=== PATIENT | female | born 1955 | race Caucasian/White ===

== ENCOUNTER 2020-02-19 23:05 | Emergency (ER) | payer OTHER ==
--- NOTE | 2020-02-20 00:32 | EDPHYS ---
Physician Documentation [facility] Name: Vale Milan Age: 64 yrs Sex: Female : 1955 Arrival Date: 02/19/2020 Time: 23:07 Bed 4 Private MD: ED Physician Eliazar Cabral HPI: 02/19 01:55 This 64 yrs old Female presents to ER via EMS with complaints of Leg Pain - tw4 Right. 01:55 The patient presents with decreased range of motion, a deformity. The complaints affect tw4 the right quadriceps, right knee and right miramontes. Context: The problem was sustained at home. Onset: The symptoms/episode began/occurred today. Modifying factors: The symptoms are alleviated by nothing. the symptoms are aggravated by nothing. Severity of symptoms: At their worst the symptoms were moderate, in the emergency department the symptoms are unchanged. The patient has not experienced similar symptoms in the past. Historical: - Allergies: 02/18 23:10 No Known Allergies; sg - PMHx: 23:10 COPD; sg - PSHx: 23:10 Finger tip; sg - Immunization history:: Adult Immunizations not up to date. - Social history:: Smoking status: Patient denies any tobacco usage or history of. ROS: 02/19 01:55 Constitutional: Negative for fever, chills, and weight loss, Eyes: Negative for injury, tw4 pain, redness, and discharge, Cardiovascular: Negative for chest pain, palpitations, and edema, Respiratory: Negative for shortness of breath, cough, wheezing, and pleuritic chest pain, Abdomen/GI: Negative for abdominal pain, nausea, vomiting, diarrhea, and constipation, Back: Negative for injury and pain, Skin: Negative for injury, rash, and discoloration, Neuro: Negative for headache, weakness, numbness, tingling, and seizure. MS/extremity: Positive for swelling, tenderness. Exam: 01:55 Constitutional: This is a well developed, well nourished patient who is awake, alert, tw4 and in no acute distress. Head/Face: Normocephalic, atraumatic. Chest/axilla: Normal chest wall appearance and motion. Nontender with no deformity. No lesions are appreciated. Cardiovascular: Regular rate and rhythm with a normal S1 and S2. No gallops, murmurs, or rubs. Normal PMI, no JVD. No pulse deficits. Respiratory: Lungs have equal breath sounds bilaterally, clear to auscultation and percussion. No rales, rhonchi or wheezes noted. No increased work of breathing, no retractions or nasal flaring. Abdomen/GI: Soft, non-tender, with normal bowel sounds. No distension or tympany. No guarding or rebound. No evidence of tenderness throughout. Back: No spinal tenderness. No costovertebral tenderness. Full range of motion. Neuro: Awake and alert, GCS 15, oriented to person, place, time, and situation. Cranial nerves II-XII grossly intact. Motor strength 5/5 in all extremities. Sensory grossly intact. Cerebellar exam normal. Normal gait. 01:55 Musculoskeletal/extremity: Extremities: noted in the right leg: swelling, tenderness, ROM: Circulation is intact in all extremities. Vital Signs: 02/18 23:07 BP 178 / 82; Pulse 87; Resp 17; Temp 97.7; Pulse Ox 100% on R/A; sg 02/19 00:30 BP 161 / 86; Pulse 79; Resp 18; Pulse Ox 98% on R/A; MDM: 02/18 23:08 Patient medically screened. tw4 02/19 01:55 Differential diagnosis: dislocation, open fracture, closed fracture. Data reviewed: tw4 vital signs, nurses notes. Data reviewed: radiologic studies, ultrasound. Data interpreted: Pulse oximetry: Interpretation: normal. Counseling: I had a detailed discussion with the patient and/or guardian regarding: the historical points, exam findings, and any diagnostic results supporting the discharge/admit diagnosis. Special discussion: Based on the patient's history, exam and DX evaluation, there is no indication for emergent intervention or inpatient TX. It is understood by the patient/guardian that if the SXs persist or worsen they need to return immediately for re-evaluation. 02/18 23:10 Order name: Extremity Venous Uni Ltd tw4 Administered Medications: 00:44 Drug: [place] 5 mg-325 mg 1 tabs Route: PO; 01:04 Follow up: Response: No adverse reaction; Pain is decreased; RASS: Alert and Calm (0) Disposition: 02/20/20 00:32 Discharged to Home. Impression: Lower extremuty edema. - Condition is Stable. - Discharge Instructions: Edema, Peripheral Edema. - Medication Reconciliation Form, Thank You Letter, Antibiotic Education, Prescription Opioid Use form. - Follow up: Private Physician; When: Upon discharge from the Emergency Department; Reason: Recheck today's complaints, Continuance of care, Re-evaluation by your physician. - Problem is new. - Symptoms are unchanged. Signatures: Dispatcher [employer] EDCrow Zaman RN RN Farrukh Markham Terrence, MD MD tw4 Eusebia Clark mw2 Corrections: (The following items were deleted from the chart) 00:57 00:32 02/20/2020 00:32 Discharged to Home. Impression: Lower extremuty edema. Condition mw2 is Stable. Forms are Medication Reconciliation Form, Thank You Letter, Antibiotic Education, Prescription Opioid Use. Follow up: Private Physician; When: Upon discharge from the Emergency Department; Reason: Recheck today's complaints, Continuance of care, Re-evaluation by your physician. Problem is new. Symptoms are unchanged. tw4
--- NOTE | 2020-02-20 00:32 | ER ---
Nurse's Notes [facility] Name: Vale Milan Age: 64 yrs Sex: Female : 1955 Arrival Date: 02/19/2020 Time: 23:07 Bed 4 Private MD: Diagnosis: Lower extremuty edema Presentation: 02/18 23:07 Chief complaint: EMS states: pt reports having pain and swelling to the right lower sg extremity with redness, pt states having swelling at home yesterday and the day before, but this evening the swelling has gone down, but the pain remains. Coronavirus screen: Client denies travel out of the [place] in the last 14 days. At this time, the client does not indicate any symptoms associated with coronavirus-19. Ebola Screen: Patient negative for fever greater than or equal to 101.5 degrees Fahrenheit, and additional compatible Ebola Virus Disease symptoms Patient denies exposure to infectious person. Patient denies travel to an Ebola-affected area in the 21 days before illness onset. No symptoms or risks identified at this time. Initial Sepsis Screen: Does the patient meet any 2 criteria? No. Patient's initial sepsis screen is negative. Does the patient have a suspected source of infection? No. Patient's initial sepsis screen is negative. Risk Assessment: Do you want to hurt yourself or someone else? Patient reports no desire to harm self or others. Onset of symptoms was February 19, 2020. Care prior to arrival: None. Mechanism of Injury: No Mechanism of Injury. Transition of care: patient was not received from another setting of care. 23:07 Acuity: AUGUSTIN 3 sg 23:07 [facility] Assessment: 23:30 General: Appears in no apparent distress. Behavior is calm, cooperative, appropriate wh for age. Historical: - Allergies: 23:10 No Known Allergies; sg - PMHx: 23:10 COPD; sg - PSHx: 23:10 Finger tip; sg - Immunization history:: Adult Immunizations not up to date. - Social history:: Smoking status: Patient denies any tobacco usage or history of. Screenin:30 Abuse screen: Denies threats or abuse. Denies injuries from another. Nutritional wh screening: No deficits noted. Tuberculosis screening: No symptoms or risk factors identified. Fall Risk None identified. Assessment: 23:30 General: Appears in no apparent distress. Behavior is calm, cooperative, appropriate wh for age. Pain: Complains of pain in right leg Pain currently is 5 out of 10 on a pain scale. Neuro: Level of Consciousness is awake, alert, obeys commands, Oriented to person, place, time, situation, Appropriate for age. Cardiovascular: Capillary refill < 3 seconds. Respiratory: Airway is patent Respiratory effort is even, unlabored, Respiratory pattern is regular, symmetrical. GI: Abdomen is flat, non-distended. : No signs and/or symptoms were reported regarding the genitourinary system. EENT: No signs and/or symptoms were reported regarding the EENT system. Derm: Skin is intact, is healthy with good turgor, Skin is pink, warm \T\ dry. Musculoskeletal: Circulation, motion, and sensation intact. 02/19 00:10 Reassessment: Ultrasound at bedside. 00:30 Reassessment: Patient appears in no apparent distress at this time. No changes from previously documented assessment. Patient and/or family updated on plan of care and expected duration. Pain level reassessed. Patient is alert, oriented x 3, equal unlabored respirations, skin warm/dry/pink. Vital Signs: 02/18 23:07 BP 178 / 82; Pulse 87; Resp 17; Temp 97.7; Pulse Ox 100% on R/A; sg 12 00:30 BP 161 / 86; Pulse 79; Resp 18; Pulse Ox 98% on R/A; ED Course: 02/18 23:07 Patient arrived in ED. sg 23:07 Arm band placed on. sg 23:08 Eliazar Cabral MD is Attending Physician. tw4 23:09 Triage completed. sg 23:10 Warm blanket given. Verbal reassurance given. sg 23:13 Farrukh Rogers is Primary Nurse. 23:30 Patient has correct armband on for positive identification. Bed in low position. Call light in reach. Side rails up X 1. Pulse ox on. NIBP on. 02/19 00:16 Ultrasound completed. Patient tolerated well. Notified ED Physician nena. sg3 00:16 Extremity Venous Uni Ltd US In Process Unspecified. EDMS 00:57 No provider procedures requiring assistance completed. Patient did not have IV access during this emergency room visit. Administered Medications: 00:44 Drug: Alpha 5 mg-325 mg 1 tabs Route: PO; 01:04 Follow up: Response: No adverse reaction; Pain is decreased; RASS: Alert and Calm (0) Outcome: 00:32 Discharge ordered by . tw4 00:57 Patient left the ED. mw2 00:57 Discharged to home ambulatory. 00:57 Condition: stable 00:57 Discharge instructions given to patient, Instructed on discharge instructions, follow up and referral plans. POC Demonstrated understanding of instructions, follow-up care, POC Addendum: 02/22/2020 10:12 Addendum: Other id card and insurance card sent to lost and found by security. b d Signatures: Dispatcher [employer] EDBronwyn Bruno Steven, Farrukh Mccrary RN, Sarah 3 Eliazar Cabral MD MD tw4 Eusebia Clark mw2
[2020-02-20] MEDS ORDERED: HYDROCODONE/APAP 5/325 MG TAB ONE (00:55)
--- NOTE | 2020-02-20 11:52 | RAD REPORT ---
EXAM DESCRIPTION: US - Extremity Venous Uni Ltd - 02/20/2020 12:15 am CLINICAL HISTORY: SWELLING Leg swelling and edema. COMPARISON: No comparisons FINDINGS: Right lower extremity venous system was interrogated with Doppler technique. Normal flow, compressibility and augmentation was noted. There is no DVT present. IMPRESSION: No evidence of right lower extremity deep venous thrombosis.
[2020-02-24 06:40] VITALS: BP 178/82; TEMP 97.7; O2SAT 100
== END 2020-02-20 00:57 | disposition home or self-care (01) ==
LOC: ER 23:05
DX: R60.0 Localized edema (principal); J44.9 Chronic obstructive pulmonary disease, unspecified
CPT/HCPCS: 93971; 99284

== ENCOUNTER 2020-07-03 07:24 | Day surgery (SDC) | payer OTHER ==
[2020-06-29 14:10] LABS: Absolute Lymphocytes (CBC) 0.4 K/uL (0.7-4.9); Basophils % 1.1 % (0-1.3); Hematocrit 35.3 % (36.0-45.0); Lymphocytes % 15.2 % (15.3-44.8); MPV 8.2 fL (7.6-11.3); RBC Red Blood Cell Count 3.83 M/uL (3.86-4.86)
[2020-06-29 14:47] LABS: BUN Blood Urea Nitrogen 3 mg/dL (7-18); Bicarbonate 31 mmol/L (21-32); Glucose Level 55 mg/dL (74-106); Potassium 3.4 mmol/L (3.5-5.1); Sodium Level 138 mmol/L (136-145)
[2020-07-03] MEDS ORDERED: Ringers Lactate 1,000 ML IV ONE (08:02)
[2020-07-03] MEDS ORDERED: ALBUTEROL 2.5 MG/3 ML NEB SOL ONE (08:02)
[2020-07-03] MEDS ORDERED: CEFAZOLIN/SWI 1gm 1 GM/10 ML SYR ONE (08:02)
[2020-07-03] MEDS ORDERED: propofoL 200 MG/20 ML VIAL IV ONE (08:30)
[2020-07-03] MEDS ORDERED: dexAMETHasone 10 MG/ML VIAL ONE (08:31)
[2020-07-03] MEDS ORDERED: MIDAZOLAM HCL 2 MG/2 ML INJ ONE (08:31)
[2020-07-03] MEDS ORDERED: ONDANSETRON 4 MG/2 ML VIAL ONE (08:31)
[2020-07-03] MEDS ORDERED: KETOROLAC 30 MG/ML INJ ONE (08:31)
[2020-07-03] MEDS ORDERED: LIDOCAINE 2% MPF 5 ML VIAL ONE (08:31)
[2020-07-03] MEDS ORDERED: FENTANYL CITR 100 MCG/2 ML ONE ×2 (08:31→09:48)
[2020-07-03] MEDS ORDERED: BUPIVACAINE 0.25% PF 30 ML VIAL ONE (08:32)
--- NOTE | 2020-07-03 10:16 | P.OP ---
Preoperative diagnosis: Lymphadenopathy Postoperative diagnosis: Lymphadenopathy Primary procedure: Open RIGHT Inguinal Lymph Node Biopsy Anesthesia: GETA + Local Estimated blood loss: < 50cc Specimen: RIGHT Inguinal Lymph Node Findings: Matted Fixed, Lymph Nodes, Dilated branches of inf epigastric vein Complications: None Drain(s): Other (Telfa) Transferred to: Recovery Room Condition: Good
[2020-07-03] MEDS: LABETALOL 20 MG/4ML SYRINGE IV ONE ×2 (10:44→10:55)
[2020-07-03 14:04] VITALS: BP 148/70; TEMP 98.4; O2SAT 96
--- NOTE | 2020-07-03 14:21 | OP ---
Date of Procedure: 07/03/2020 Surgeon: Maddy Meléndez MD, Preoperative Diagnosis: Lymphadenopathy. Postoperative Diagnosis: Lymphadenopathy. Procedure Performed: Open right inguinal lymph node biopsy. Anesthesia: General endotracheal plus local with 0.25% Marcaine. Specimen: Right inguinal lymph node. Findings: 1.Matted fixed lymph nodes in the right inguinal lymph node chain. 2.Dilated branches of the inferior epigastric vein entwined and running along the course of the lymp h node chain. Complications: None. Estimated Blood Loss: Less than 50 mL. Drains: Telfa. Disposition: Transferred to recovery room in good condition. Procedure In Detail: After informed consent was obtained, the patient was brought to the operating r oom, prepped and draped in the usual sterile fashion after adequate anesthesia was achieved. I palpa maddy large lymph nodes in the right inguinal region. I performed an incision superior to the inguinal crease down through the subcutaneous tissues overlying a large dominant lymph node. I dissected randy n using electrocautery down to subcutaneous tissues. I opened the external oblique aponeurosis tissu e to access the lymph node chain, which was easily palpable. I circumferentially dissected the domin ant lymph node, which was fixed and matted to the entire lymph node chain and required meticulous dis section. As I dissected circumferentially around, I placed clips on all lymphatic channels to contro l postoperative lymph leak. The branches of the inferior epigastric vein were dilated and partially obstructing the view towards the lymph node chain and dissection was performed. However, branches of the inferior epigastric vein were injured and were suture ligated using 3-0 Prolene suture at this p oint. The dissection continued circumferentially to dissect the lymph node. All arterial branches w ere either clipped with small Endo clips and ligated with Metzenbaums or were controlled with the yovany jayant narayanan 3-0 Prolene suture with good hemostasis. The lymph node was removed and sent off for patholog ic examination. The wound bed was copiously irrigated and packed with Surgicel temporarily until goo d hemostasis was achieved. The Surgicel was removed at this point. The area was irrigated once agai n. No additional hemostatic maneuvers were required. Clips were found to be in good position. I th en proceeded to close the external oblique aponeurosis at this point in an interrupted fashion using a 3-0 Vicryl suture with good apposition of the tissues and upon closure with the 4-0 Monocryl, an ad ditional branch of the epigastric vein was encountered and had a significant injury causing bleeding temporarily. This was controlled after meticulous dissection and controlled once again with a 3-0 Pr olene suture and good hemostasis was achieved at this point. The area was copiously irrigated once a gain. No additional hemostatic measures were required. The skin was then closed using interrupted 3 -0 nylon and a Telfa wick was placed into the wound bed to allow for drainage in addition. The Telfa wick was sutured to the skin. I then placed a sterile dressing over top. The patient tolerated the procedure without evidence of complication and transferred to PACU in good condition. All counts we re correct at the end of the case. KEARA/VISHAL Voice ID: [id number] Report ID: [id number]
== END 2020-07-03 12:15 | disposition home or self-care (01) ==
LOC: OR 07:24
PROVIDERS: ATTEND Surgery
PROC: 07BH0ZX Excision of Right Inguinal Lymphatic, Open Approach, Diagnostic (ICD-10-PCS; principal; 2020-07-03 08:30)
DX: R59.0 Localized enlarged lymph nodes (principal); Z20.822 Contact with and (suspected) exposure to COVID-19
CPT/HCPCS: 38531; 85025; 80048; 36415; 88305; 88333; U0003; J2704; J2250; J3010 ×2; J1100; J0690; J7120; J2405; 88307

== ENCOUNTER 2021-12-03 12:51 | Emergency (ER) | payer OTHER ==
--- OUTSIDE RECORDS SUMMARY | 2021-12-03 12:54 | XMS REPORT | Continuity of Care Document ---
:1955 Author Organization [facility] t Address [address] [place] [address] Care Team Providers Name Role Phone PARTHA Attending Clinician Unavailable Doctor Unassigned, [place] Attending Clinician Unavailable Joseph Foss Attending Clinician JOSEPH YANG Attending Clinician Unavailable PARTHA Admitting Clinician Unavailable Payers Payer Name Policy Type Policy Number Effective Date Expiration Date S ource Problems Condition Condition Condition Status Onset Resolution Last Treating Co mments Source Name Details Category Date Date Treatment Clinician Date Esophageal Esophageal Disease Active U nivers reflux reflux 1-14 ity of 00:00: [address] 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 1-14 ity [place] 00 Medical elsewhere elsewhere Bran ch classified classified Weight Weight Disease Active Univers loss loss 1-14 ity of 00:00: [address] Allergies, Adverse Reactions, Alerts Allergy Allergy Status Severity Reaction(s) Onset Inactive Treating Comm ents Source Name Type Date Date Clinician NO KNOWN Drug Active Univers ALLERGIE Class ity of S [facility] Social History Social Habit Start Date Stop Date Quantity Comments Source History of tobacco Cigarette Smoker University of use [facility] Exposure to Not sure University SARS-CoV-2 (event) [facility] Cigarettes smoked 2020-05-26 2020-05-26 Univers ity of current (pack per 00:00:00 00:00:00 ) - Reported Branch Cigarette 2020-05-26 2020-05-26 University of pack-years 00:00:00 00:00:00 [facility] Alcohol intake 2020-05-26 2020-05-26 Current drinker Unive rsity of 00:00:00 00:00:00 of alcohol [facility] (finding) Breeding Alcohol Comment 2009-04-01 2009-04-01 6 pack beer per Univ ersity of 00:00:00 00:00:00 day [facility] Sex Ass[birth year] Universit y of 00:00:00 00:00:00 [facility] Smoking Status Start Date Stop Date Source Former smoker 2020-05-26 00:00:00 2020-05-26 00:00:00 Universi ty of [facility] Medications Ordered Filled Start Stop Current Ordering Indication Dosage Frequency Signature Comments Components Source Medication Medication Date Date Medication? Clinician (SIG) Name Name iohexol 2020- No [id number] 100mL 100 mL, Univers (OMNIPAQUE 05-26 Intravenou it y of 350 23:30: 23:19 s, ONCE, 1 [place] BULK-100 00 :00 dose, Fri Medica l mL) 05/26/20 at Breeding injection 1730, 100 mL Routine ibuprofen No 800mg 800 mg, Uni vers (IBU) 05-26 Oral, ity of tablet 800 21:00: 21:00 ONCE, 1 Cu[place]emoc as mg 00 :00 dose, Fri Medical 05/26/20 at Breeding 1500, SAMANTHA HYDROcodone 2020- No 1{tbl} 1 tablet, Univers -acetaminop 05-26 Oral, ity of hen (NORCO 21:00: 20:16 ONCE, 1 Cuau[place]emoc as 5) 5-325 mg 00 :00 dose, Fri Med ical tablet 1 05/26/20 at [facility] tablet 1500, SAMANTHA POTASSIUM Yes 2 tabs Univer s 99 MG ORAL 3-12 oral BID ity o f TAB 19:26: [address] Branch IPRATROPIUM 2020-0 Yes 2 puffs Uni vers -ALBUTEROL 3-12 INH q6hprn ity of 18-103 19:26: [facility]/ACTUATI Medical ON INHALE Breeding AERO POTASSIUM Yes 2 tabs Univer s 99 MG ORAL 3-12 oral BID ity o f TAB 19:26: [address] Branch IPRATROPIUM 0 Yes 2 puffs Uni vers -ALBUTEROL 3-12 INH q6hprn ity of 18-103 19:26: [place] MCG/ACTUATI 51 Medical ON INHALE Branch AERO IRON-B12- Yes 1 oral Univ ers TAMINS ORAL 3-18 daily ity of TAB 14:43: [place] [address] Medical Breeding IRON-B12- Yes 1 oral Univ ers TAMINS ORAL 3-18 daily ity of TAB 14:43: [address] Branch NIACIN ORAL Yes 1 oral Univ ers 3-18 daily ity of 14:43: [address] NIACIN ORAL Yes 1 oral Univ ers 3-18 daily ity of 14:43: [address] CENTRUM Yes 1 oral Univers ORAL 1-14 daily ity of 21:05: [place] [address] Medical Breeding CENTRUM Yes 1 oral Univers ORAL 1-14 daily ity of 21:05: [place] [address] Medical Branch OMEPRAZOLE Yes 1 by mouth U nivers 20 MG ORAL 1-14 every day ity of CPDR 00:00: [place] [address] Medical Branch ADVAIR Yes 1 puff BID Unive rs DISKUS 1-14 ity of 250-50 00:00: [place] MCG/DOSE 00 Medical INHALE DSDV Branch OMEPRAZOLE Yes 1 by mouth U nivers 20 MG ORAL 1-14 every day ity of CPDR 00:00: [place] [address] Medical Branch ADVAIR Yes 1 puff BID Unive rs DISKUS 1-14 ity of 250-50 00:00: [place] [facility]/DOSE 00 Medical INHALE DSDV Branch Vital Signs Vital Name Observation Time Observation Value Comments Source Heart rate 2020-05-26 22:33:20 [facility] Respiratory rate 2020-05-26 22:33:20 20 /min [facility] O[facility] saturation in 2020-05-26 22:33:20 98 /min [facility] Arterial blood by [facility] [place] [place] Pulse oximetry Branch Systolic blood 2020-05-26 19:26:00 146 mm[Hg] Univer sity of pressure [facility] Diastolic blood 2020-05-26 19:26:00 91 mm[Hg] Unive rsity of pressure [facility] Body temperature 2020-05-26 19:26:00 37.22 [facility] Body weight 2020-05-26 19:26:00 47.628 kg [facility] Procedures Procedure Date / Time Performing Clinician Source Performed AUTHORIZATION FOR 2020-07-02 05:01:00 Doctor Unasslynn, No [facility] RELEASE OF [facility] Name Medical Branch DUPLEX VENOUS LEG RIGHT 2020-05-26 22:37:51 Joseph Yang [facility] - BY VASCULAR LAB Medical Branch COMP. METABOLIC PANEL 2020-05-26 22:31:00 Joseph Yang [facility] ([id number]) Medical Branch CBC WITHOUT DIFF 2020-05-26 22:31:00 Joseph Yang [facility] NOTICE OF PRIVACY 2020-05-26 19:14:26 Doctor Unassigned, No [facility] Encounters Start End Encounter Admission Attending Care Care Encounter Source Date/Time Date/Time Type Type Clinicians Facility Department ID 2021-09-25 2021-09-25 Outpatient FERGUSON_JARETT MELARA [facility] [address] 10:14:00 10:14:00 HN 0712 da [facility] Outreac h Program 2020-07-02 2020-07-02 Orders Doctor CLEMENCIA [id number] Univers 00:00:00 00:00:00 Only Unassigned, MASON [id number] ity of [facility] [id number] [place] [id number] [facility] 009 Branch 2020-05-26 2020-05-26 Emergency EMILIA Yang [id number] Univers 13:28:00 17:37:00 Joseph Beckett [id number] i ty [facility] [id number] [facility] [id number] [facility] 084 Branch 2020-05-26 2020-05-26 Emergency X AMANDA MICLAUDIA ERT [id number] Univers 13:28:00 13:28:00 JOSEPH ciro [facility] Results Test Description Test Time Test Comments Results Result Comments Source COMP. METABOLIC PANEL (88502) 2020-05-26 22:53:07 Test Item Value Reference Range Interpretation Comme nts NA (test code = 9759052605) 133 mmol/L 135-145 L K (test code = 5186580454) 3.9 mmol/L 3.5-5.0 CL (test code = 4099307563) 96 mmol/L 98-108 L CO2 TOTAL (test code = 6536292481) 31 mmol/L 23-31 AGAP (test code = 2289867550) 2-16 BUN (test code = 5337984173) 7 mg/dL 7-23 GLUCOSE (test code = 9045829063) 91 mg/dL 70-110 CREATININE (test code = 0.82 mg/dL 0.50-1.04 3539021429) TOTAL BILI (test code = 0.9 mg/dL 0.1-1.4 9972074716) CALCIUM (test code = 9743420002) 8.9 mg/dL 8.6-10.6 T PROTEIN (test code = 6263630140) 6.6 g/dL 6.3-8.2 ALBUMIN (test code = 7869484243) 4.0 g/dL 3.5-5.0 ALK PHOS (test code = 1641858576) 99 U/L 34-122 ALTv (test code = 1742-6) 26 U/L 5-35 AST(SGOT) (test code = 3627121914) 42 U/L 13-40 H eGFR Calculation (Non- mL/min/1.73m2 [place]) (test code = 4750018552) eGFR Calculation ( mL/min/1.73m2 [place]) (test code = 4437474528) RIKA (test code = RIKA) Association of Glomerular Filtration Rate (GFR) and Staging of Kidney Disease* + +-------- + ------+| GFR (mL/min/1.73 m2) ?| With Kidney Damage ?| ?Without Kidney Damage+ +-- + +| ?>90 ?| ?Stage one ?| ? Normal ?+ +------- + -------+| ?60-89 ?| ?Stage two ?| ? Decreased GFR ? + +-------- + ------+| ?30-59 ?| ?Stage three ?| ? Stage three ? + +-------- + ------+| ?15-29 ?| ?Stage four ? | ? Stage four ?+ +------- + -------+| ?<15 (or dialysis) ? ?| ?Stage five ? | ? Stage five ?+ +------- + -------+ *Each stage assumes the associated GFR level has been in effect for at least three months. ?Stages 1 to 5, with or without kidney disease, indicate chronic kidney disease. Notes: Determination of stages one and two (with eGFR >59mL/min/1.73 m2) requires estimation of kidney damage for at least three months as defined by structural or functional abnormalities of the kidney, manifested by either:Pathological abnormalities or Markers of kidney damage (including abnormalities in the composition of the blood or urine or abnormalities in imaging tests). Lab Interpretation (test code = Abnormal 51723-3) [facility] WITHOUT [id number] 22:40:41 Test Item Value Reference Range Interpretation Comments WBC (test code = 6690-2) See_Comment L [A utomated message] The system [employer] generated this result transmit maddy reference range : 4.30 - 11.10 10*3/?L. The reference range was not used to interpret this result as normal/abnormal . RBC (test code = 789-8) See_Comment L [Au tomated message] The system [employer] generated this result transmit maddy reference range : 3.93 - 5.25 10* 6/?L. The reference r jose was not used to interpret this result as normal/abnormal . HGB (test code = 718-7) 11.8 g/dL 11.6-15.0 HCT (test code = 4544-3) 34.5 % 35.7-45.2 L MCH (test code = 785-6) 31.5 pg 25.9-32.8 MCV (test code = 787-2) 92.0 fL 80.6-95.5 MCHC (test code = 786-4) 34.2 g/dL 31.6-35.1 PLT (test code = 777-3) See_Comment L [Au tomated message] The system [employer] generated this result transmit maddy reference range : 166 - 358 10*3/?L. The reference range was not used to interpret this result as normal/abnormal . MPV (test code = 10.2 fL 9.5-12.9 96870-7) RDW-CV (test code = 13.7 % 12.0-15.5 788-0) RDW-SD (test code = 46.4 fL 39.0-49.9 20056-0) NRBC x10^3 (test code = <0.01 See_Comment [Au tomated message] [id number]) The system [employer] generated this result transmit maddy reference range : 10*3/?L. The reference range was not used to interpret this result as normal/abnormal . NRBC/100 WBC (test code See_Comment [Au tomated message] = 9108402549) The system [employer] ch generated this result transmit maddy reference range : 0.0 - 10.0 /100 WBC s. The reference r jose was not used to interpret this result as normal/abnormal . IPF % (test code = 3660890708) Lab Interpretation (test Abnormal code = 96532-0) [facility]"
[2021-12-03] MEDS ORDERED: IPRATROPIUM BROM 0.5MG/2.5ML ONE (13:34)
--- NOTE | 2021-12-03 17:23 | EDPHYS ---
Physician Documentation [facility] Name: Vale Milan Age: 66 yrs Sex: Female : 1955 Arrival Date: 12/03/2021 Time: 12:55 Bed 28 Private MD: ED Physician Phyllis Michael HPI: 12/03 12:59 This 66 yrs old Female presents to ER via EMS with complaints of failure to thrive. sd2 12:59 66-year-old female presents via EMS with chief complaint of failure to thrive and sd2 social issue. The patient is currently in home hospice and EMS was initially called earlier today and the patient refused to be transported at that time. Family called once again as they are no longer able to care for her due to the amount of care that is needed. They are not comfortable with home hospice anymore and would like for her to be placed somewhere. However, the patient when I have asked her at bedside, is not wanting to go to a snf. She reports that her daughter told her she could go home with her. She has no acute complaints but is requesting her nebulizer treatment that she is due to have.. Historical: - Allergies: 12:58 No Known Allergies; hb - PMHx: 12:58 COPD; hb - Immunization history:: Adult Immunizations unknown. - Social history:: Smoking status: unknown. ROS: 12:59 Constitutional: Negative for fever, chills, and weight loss, Eyes: Negative for injury, sd2 pain, redness, and discharge, Cardiovascular: Negative for chest pain, palpitations, and edema, Respiratory: Negative for shortness of breath, cough, wheezing. Abdomen/GI: Negative for abdominal pain, nausea, vomiting, diarrhea. MS/Extremity: Negative for injury and deformity, Skin: Negative for injury, rash, and discoloration, Neuro: Negative for headache, numbness and tingling. Exam: 12:59 Constitutional: This is a cachectic, chronically ill appearing patient who is awake, sd2 alert, and in no acute distress. Head/Face: Normocephalic, atraumatic. Eyes: EOMI, normal conjunctiva bilaterally Chest/axilla: Normal chest wall appearance and motion. Nontender with no deformity. Cardiovascular: Regular rate and rhythm with a normal S1 and S2. No gallops, murmurs, or rubs. 2+ distal pulses. Respiratory: Lungs have equal breath sounds bilaterally, clear to auscultation and percussion. No rales, rhonchi or wheezes noted. No increased work of breathing, no retractions or nasal flaring. Abdomen/GI: Soft, non-tender, with normal bowel sounds. No guarding or rebound. No evidence of tenderness throughout. Skin: Warm, dry with normal turgor. Normal color with no rashes, no lesions, and no evidence of cellulitis. MS/ Extremity: Pulses equal, no cyanosis. Neurovascular intact. Full, normal range of motion. Ambulatory without difficulty. Psych: Awake, alert, with orientation to person, place and time. Behavior, mood, and affect are within normal limits. Vital Signs: 12:56 BP 105 / 52; Pulse 94; Resp 28; Temp 98.1; Pulse Ox 90% on 2 lpm NC; hb 13:00 BP 106 / 56; Pulse 92; Resp 16; Pulse Ox 97% on 3 lpm NC; Pain 0/10; eh3 13:30 BP 98 / 53; Pulse 89; Resp 18; Pulse Ox 98% on 3 lpm NC; Pain 0/10; eh3 14:00 BP 122 / 61; Pulse 91; Resp 16; Pulse Ox 98% on Nebulizer Mask; Pain 0/10; eh3 15:30 BP 107 / 51; Pulse 88; Resp 21; Pulse Ox 92% on 2 lpm NC; hb 16:30 BP 102 / 47; Pulse 86; Resp 18; Pulse Ox 99% on 2 lpm NC; eh3 18:14 BP 114 / 59; Pulse 84; Resp 22; Pulse Ox 96% on 2 lpm NC; hb 19:15 BP 108 / 51; Pulse 86; Resp 18; Pulse Ox 100% on 3 lpm NC; eh3 20:27 BP 99 / 47; Pulse 87; Resp 21; Pulse Ox 91% on 2 lpm NC; hb MDM: 12:57 Patient medically screened. [facility] 12:59 Differential Diagnosis failure to thrive, social issue, dehydration, electrolyte sd2 abnormality, COPD among others. Data reviewed: vital signs, nurses notes, EMS record. 17:20 Counseling: I had a detailed discussion with the patient and/or guardian regarding: the sd2 historical points, exam findings, and any diagnostic results supporting the discharge/admit diagnosis, the need for outpatient follow up, to return to the emergency department if symptoms worsen or persist or if there are any questions or concerns that arise at home. Medical screen evaluation completed. EMTALA emergency medical condition absent. ED course: Case Management, Amber, consulted. She has been in contact with patient's MPOA, Brie, who agrees to accept the patient back to her home while they are working on placement. This is the patient's home and she is awake, alert and oriented x3 and does not want to be placed in a snf or admitted and wants to go back home and continue Home Hospice care. There are no indications for admission at this time. Hospice program was contacted and informed she is not being admitted. They will continue her care and have not revoked her Hospice at this time. Further discussion of patient's care plan and management to be coordinated by her hospice program. . Administered Medications: 13:27 Drug: DuoNeb (albuterol 2.5 mg, ipratropium 0.5 mg) (3:1) (2.5 mg - 0.5 mg) 3 ml Route: eh3 Nebulizer; 14:24 Follow up: Response: No adverse reaction; Wheezing diminished eh3 Disposition Summary: 12/03/21 17:23 Discharge Ordered Location: Home sd2 Problem: an ongoing problem sd2 Symptoms: are resolved sd2 Condition: Stable sd2 Diagnosis - Adult failure to thrive sd2 - Home Hospice patient sd2 Followup: sd2 - With: Private Physician - When: 2 - 3 days - Reason: Recheck today's complaints, Continuance of care, Re-evaluation by your physician Discharge Instructions: - Discharge Summary Sheet sd2 - Failure to Thrive, Adult sd2 Forms: - Medication Reconciliation Form sd2 - Thank You Letter sd2 - Antibiotic Education sd2 - Prescription Opioid Use sd2 Signatures: Dispatcher [employer] EDMS Farzaneh Angeles RN RN Noreen Zhao RN RN 3 Sole Goldberg FNP FNP [facility] Phyllis Michael MD MD sd2 Corrections: (The following items were deleted from the chart) 17:23 16:26 CBC+H.LAB.BRZ ordered. EDMS EDMS 17:23 16:26 BASIC METABOLIC PANEL+C.LAB.BRZ ordered. EDMS EDMS
--- NOTE | 2021-12-03 17:23 | ER ---
Nurse's Notes [facility] Name: Vale Milan Age: 66 yrs Sex: Female : 1955 Arrival Date: 12/03/2021 Time: 12:55 Bed 28 Private MD: Diagnosis: Adult failure to thrive;Home Hospice patient Presentation: 12/03 12:56 Chief complaint: EMS states: Pt on hospice at home, family called EMS and said they hb could not take care of her anymore. Coronavirus screen: At this time, the client does not indicate any symptoms associated with coronavirus-19. Ebola Screen: No symptoms or risks identified at this time. Risk Assessment: Do you want to hurt yourself or someone else? Patient reports no desire to harm self or others. Onset of symptoms was December 03, 2021. 12:56 Method Of Arrival: EMS: [facility] 12:56 Acuity: AUGUSTIN 2 hb 13:00 Initial Sepsis Screen: Does the patient meet any 2 criteria? No. Patient's initial hb sepsis screen is negative. Does the patient have a suspected source of infection? No. Patient's initial sepsis screen is negative. Historical: - Allergies: 12:58 No Known Allergies; hb - PMHx: 12:58 COPD; hb - Immunization history:: Adult Immunizations unknown. - Social history:: Smoking status: unknown. Screenin:20 Abuse screen: Denies threats or abuse. Denies injuries from another. Nutritional eh3 screening: No deficits noted. Tuberculosis screening: No symptoms or risk factors identified. Fall Risk Secondary diagnosis (15 points) No IV (0 pts). Ambulatory Aid- None/Bed Rest/Nurse Assist (0 pts). Gait- Normal/Bed Rest/Wheelchair (0 pts) Mental Status- Total Jiang Fall Scale indicates No Risk (0-24 pts). Assessment: 13:20 General: Appears in no apparent distress. comfortable, slender, emaciated, Behavior is eh3 calm, cooperative. Pain: Denies pain. Neuro: Level of Consciousness is awake, alert, obeys commands, Oriented to person, place. Cardiovascular: Capillary refill < 3 seconds Patient's skin is warm and dry. Respiratory: Airway is patent Respiratory effort is even, unlabored. GI: No signs and/or symptoms were reported involving the gastrointestinal system. : No signs and/or symptoms were reported regarding the genitourinary system. EENT: No signs and/or symptoms were reported regarding the EENT system. Derm: Skin is fragile, is thin, with poor turgor Skin is dry, Skin is pink, warm \T\ dry. Musculoskeletal: No signs and/or symptoms reported regarding the musculoskeletal system. 14:24 Reassessment: Patient and/or family updated on plan of care and expected duration. Pain eh3 level reassessed. Patient is alert, oriented x 3, equal unlabored respirations, skin warm/dry/pink. 15:30 Reassessment: Patient and/or family updated on plan of care and expected duration. Pain eh3 level reassessed. Patient is alert, oriented x 3, equal unlabored respirations, skin warm/dry/pink. 16:30 Reassessment: Patient and/or family updated on plan of care and expected duration. Pain eh3 level reassessed. Patient is alert, oriented x 3, equal unlabored respirations, skin warm/dry/pink. SW consultation in progress. 17:35 Reassessment: Spoke with daughter Adriana via hearing impaired soda room operator, cell [phone]. 18:30 Reassessment: Patient and/or family updated on plan of care and expected duration. Pain eh3 level reassessed. Patient is alert, oriented x 3, equal unlabored respirations, skin warm/dry/pink. 19:30 Reassessment: Patient and/or family updated on plan of care and expected duration. Pain eh3 level reassessed. Patient is alert, oriented x 3, equal unlabored respirations, skin warm/dry/pink. 20:27 Reassessment: Patient appears in no apparent distress at this time. Patient and/or hb family updated on plan of care and expected duration. Pain level reassessed. Patient is alert, oriented x 3, equal unlabored respirations, skin warm/dry/pink. Vital Signs: 12:56 BP 105 / 52; Pulse 94; Resp 28; Temp 98.1; Pulse Ox 90% on 2 lpm NC; hb 13:00 BP 106 / 56; Pulse 92; Resp 16; Pulse Ox 97% on 3 lpm NC; Pain 0/10; eh3 13:30 BP 98 / 53; Pulse 89; Resp 18; Pulse Ox 98% on 3 lpm NC; Pain 0/10; eh3 14:00 BP 122 / 61; Pulse 91; Resp 16; Pulse Ox 98% on Nebulizer Mask; Pain 0/10; eh3 15:30 BP 107 / 51; Pulse 88; Resp 21; Pulse Ox 92% on 2 lpm NC; hb 16:30 BP 102 / 47; Pulse 86; Resp 18; Pulse Ox 99% on 2 lpm NC; eh3 18:14 BP 114 / 59; Pulse 84; Resp 22; Pulse Ox 96% on 2 lpm NC; hb 19:15 BP 108 / 51; Pulse 86; Resp 18; Pulse Ox 100% on 3 lpm NC; eh3 20:27 BP 99 / 47; Pulse 87; Resp 21; Pulse Ox 91% on 2 lpm NC; hb ED Course: 12:55 Patient arrived in ED. 12:57 Sole Goldberg [facility]NP [facility] 12:57 Phyllis Michael MD is Attending Physician. [facility] 12:58 Triage completed. 12:58 Arm band placed on. 13:07 Noreen Zhao RN is Primary Nurse. 3 13:20 Patient has correct armband on for positive identification. Bed in low position. Call 3 light in reach. Side rails up X2. Client placed on continuous cardiac and pulse oximetry monitoring. NIBP monitoring applied. Door closed. Noise minimized. Lights dimmed. Warm blanket given. Pillow given. 14:00 Cleaned of incontinence. Brief changed and Purewick in place. 3 18:30 Cleaned of incontinence. Linen changed. 3 Administered Medications: 13:27 Drug: DuoNeb (albuterol 2.5 mg, ipratropium 0.5 mg) (3:1) (2.5 mg - 0.5 mg) 3 ml Route: 3 Nebulizer; 14:24 Follow up: Response: No adverse reaction; Wheezing diminished 3 Medication: 15:15 VIS not applicable for this client. Outcome: 17:23 Discharge ordered by . sd2 21:08 Patient left the ED. Signatures: Farzaneh Angeles RN RN Noreen Zhao RN RN [facility] Sole Goldberg FNP [place] [id number] Phyllis Michael MD MD sd2 Corrections: (The following items were deleted from the chart) 14: 14:02 General: Appears in no apparent distress. comfortable, slender, emaciated, 3 Behavior is calm, cooperative, [facility] 14: Pain: Denies pain. [place] [address] : 14:02 Neuro: Level of Consciousness is awake, alert, obeys commands, Oriented to eh3 person, place, [facility] : 14:02 Cardiovascular: Capillary refill < 3 seconds Patient's skin is warm and dry. [place] [address] 14: Respiratory: Airway is patent Respiratory effort is even, unlabored, [place] [address] 14: GI: No signs and/or symptoms were reported involving the gastrointestinal system. [place] [address] 14: : No signs and/or symptoms were reported regarding the genitourinary system. [facility] 14: EENT: No signs and/or symptoms were reported regarding the EENT system. [place] [address] : 14: Derm: Skin is fragile, is thin, with poor turgor Skin is dry, Skin is pink, warm eh3 \T\ dry. [facility] : 14:02 Musculoskeletal: No signs and/or symptoms reported regarding the musculoskeletal 3 system. [facility] : 14: General: Appears in no apparent distress. comfortable, slender, emaciated, eh3 Behavior is calm, cooperative, [facility] 20:28 18:14 BP 114 / 59; Pulse 84bpm; Resp 22bpm; Pulse Ox 96% RA; hb hb
[2021-12-05 03:15] VITALS: TEMP 98.1
[2021-12-05 03:38] VITALS: BP 99/47; O2SAT 91
== END 2021-12-03 21:08 | disposition home or self-care (01) ==
LOC: ER 12:51
DX: R62.7 Adult failure to thrive (principal); J44.9 Chronic obstructive pulmonary disease, unspecified
CPT/HCPCS: 94640; 99284